=== PATIENT | female | born 2000 | race African-American/Black ===

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

== ENCOUNTER 2018-09-13 06:09 | Inpatient (IN) ==
[2018-09-13] MEDS ORDERED: MEPERIDINE 50 MG/1 ML VIAL IV PRN (06:25)
[2018-09-13] MEDS ORDERED: ONDANSETRON 4 MG/2 ML VIAL IV PRN (06:25)
[2018-09-13] MEDS ORDERED: BUTORPHANOL 2 MG/ML VIAL IV PRN (06:25)
[2018-09-13] MEDS ORDERED: OXYTOCIN/LR 20 UNIT/1,000 ML BAG IV SCH (06:30)
[2018-09-13] MEDS ORDERED: INFLUENZA VIRUS VACCINE 0.5 ML SYRINGE IM ONE (06:34)
[2018-09-13 06:47] LABS: Basophils % 0.1 % (0.0-0.8); Eosinophils # 0.2 10*3/uL (0.0-0.87); Eosinophils % 3.3 % (0.00-10.9); Hematocrit 33.1 VOL% (35.7-47.0); Hemoglobin 10.3 GM/DL (12.0-16.0); Immature Granulocytes % 0.6 %; Immature Granulocytes Absolute 0.04 #; Lymphocytes # 1.6 10*3/uL (1.4-4.0); Lymphocytes % 22.2 % (21.3-54.2); Mean Corpuscular HGB Conc 31.1 GM/DL (32-36); Mean Corpuscular Hemoglobin 31 PG (27-34); Mean Corpuscular Volume 98.2 FL (87-102); Mean Platelet Volume 9.8 FL (9.6-12.0); Monocytes # 0.6 10*3/uL (0.11-0.8); Monocytes % 7.7 % (1.7-12.7); Neutrophils # 4.8 10*3/uL (1.4-7.4); Neutrophils % 66.1 % (38.7-73.9); Platelet Count 234 T/CUMM (130-400); Red Blood Count 3.37 MC/CUMM (3.8-5.5); Red Cell Distribution Width 12.7 % (9.3-17.3); White Blood Count 7.3 T/CUMM (4-12)
[2018-09-13 06:50] LABS: Apearance,Urine CLOUDY (Clear); Bilirubin,Urine Negative (Negative); Blood, Urine Negative (Negative); Glucose,Urine (UA) Negative (Negative); Ketones,Urine 80 mg/dL (Negative); Mucus,Urine Many /LPF (Occasional); Nitrite,Urine Negative (Negative); Protein,Urine 100 MG/DL; RBC,Urine 5 /HPF (0-4); Squamous Epithelial Cell,Urine Moderate /HPF (0-10); Urine Color Amber (Yellow); Urine Specific Gravity 1.021 (1.001-1.035); WBC,Urine 42 /HPF (0-6)
[2018-09-13 07:03] LABS: Albumin 2.9 G/DL (3.4-5.0); Bilirubin,Total 0.5 MG/DL (0.2-1.0); Calcium 9.2 MG/DL (8.5-10.1); Osmolality,Calculated 275.4 MOS/KG (273-304); Potassium 4.6 MMOL/L (3.5-5.1)
[2018-09-13] MEDS ORDERED: AMPICILLIN INJ 2,000 MG in SODIUM CHLORIDE 0.9% 100 ML IV SCH (07:30)
[2018-09-13] MEDS: LACTATED RINGERS 1,000 ML IV SCH ×2 (07:48→15:16)
[2018-09-13] MEDS ORDERED: AMPICILLIN INJ 1,000 MG in SODIUM CHLORIDE 0.9% 100 ML IV SCH (12:00)
[2018-09-13] MEDS ORDERED: BUTORPHANOL 2 MG/ML VIAL IV ONE (12:56)
[2018-09-13] MEDS ORDERED: diphenhydrAMINE 50 MG/1 ML VIAL ONE (14:21)
[2018-09-13] MEDS ORDERED: diphenhydrAMINE 50 MG/1 ML VIAL IM ONE (14:23)
[2018-09-13] MEDS ORDERED: LIDOCAINE 1% 50 ML VIAL ONE (16:08)
[2018-09-13 17:19] LABS: Cord Arterial Blood HCO3 19.9 MMOL/L
[2018-09-13 17:21] LABS: Cord Venous Blood HCO3 19.2 MMOL/L; Cord Venous Blood PCO2 34.9 MMHG
[2018-09-13] MEDS ORDERED: DIPH/TET/ACEL PERT BOOSTER VACCINE 0.5 ML VIAL IM ONE (18:37)
[2018-09-13] MEDS ORDERED: MEASLES/MUMPS/RUBELLA VACCINE 0.5 ML VIAL SUBCUT ONE (18:37)
[2018-09-13] MEDS ORDERED: HYDROCORTISONE 2.5% RECTAL CREAM 30 GM TUBE TOP PRN (18:37)
[2018-09-13] MEDS ORDERED: WITCH HAZEL PADS 100/JAR TOP PRN (18:37)
[2018-09-13] MEDS ORDERED: ACETAMINOPHEN 325 MG TABLET PO PRN (18:37)
[2018-09-13] MEDS ORDERED: LANOLIN 50% CREAM 0.3 OZ TUBE TOP PRN (18:37)
[2018-09-13] MEDS ORDERED: BISACODYL 10 MG SUPP RECTAL PRN (18:37)
[2018-09-13] MEDS ORDERED: RHO(D) IMMUNE GLOBULIN 300 MCG SYRINGE IM ONE (18:37)
[2018-09-13] MEDS ORDERED: ACETAMINOPHEN/CODEINE 300-30 MG TABLET PO PRN (18:37)
[2018-09-13] MEDS ORDERED: BENZOCAINE 20%/MENTHOL 0.5% SPRAY 56 GM CAN TOP PRN (18:37)
[2018-09-13] MEDS ORDERED: oxyCODONE/ACETAMINOPHEN 5-325 MG TABLET PO PRN ×2 (18:37)
[2018-09-13] MEDS ORDERED: OXYTOCIN/LR 20 UNIT/1,000 ML BAG IV ONE ×2 (18:51→19:00)
[2018-09-13] MEDS: IBUPROFEN 800 MG TABLET PO PRN (19:34)
[2018-09-13] MEDS: DOCUSATE SODIUM 100 MG CAPSULE PO SCH (22:52)
[2018-09-14] MEDS: IBUPROFEN 800 MG TABLET PO PRN ×2 (04:00→20:51)
[2018-09-14] MEDS: DOCUSATE SODIUM 100 MG CAPSULE PO SCH ×2 (10:28→20:51)
[2018-09-14 13:05] LABS: Basophils % 0.2 % (0.0-0.8); Eosinophils # 0.2 10*3/uL (0.0-0.87); Hemoglobin 9.1 GM/DL (12.0-16.0); Immature Granulocytes % 0.9 %; Lymphocytes # 1.9 10*3/uL (1.4-4.0); Lymphocytes % 17.6 % (21.3-54.2); Mean Corpuscular HGB Conc 32.5 GM/DL (32-36); Mean Corpuscular Hemoglobin 31 PG (27-34); Mean Corpuscular Volume 94.6 FL (87-102); Mean Platelet Volume 10.1 FL (9.6-12.0); Monocytes # 0.7 10*3/uL (0.11-0.8); Monocytes % 6.6 % (1.7-12.7); Neutrophils # 7.7 10*3/uL (1.4-7.4); Neutrophils % 72.7 % (38.7-73.9); Platelet Count 210 T/CUMM (130-400); Red Blood Count 2.96 MC/CUMM (3.8-5.5); Red Cell Distribution Width 12.7 % (9.3-17.3); White Blood Count 10.6 T/CUMM (4-12)
[2018-09-15 07:30] VITALS: BP 89/48
[2018-09-15] MEDS: DOCUSATE SODIUM 100 MG CAPSULE PO SCH (10:17)
[2018-09-15] MEDS ORDERED: INFLUENZA VIRUS VACCINE 0.5 ML SYRINGE IM ONE (12:06)
== END 2018-09-15 14:10 | disposition home or self-care (01) | DRG 560 ==
LOC: N.LDOUT 06:09 → N.LD 06:12 → N.OB 09-14 11:20
PROVIDERS: ADMIT Obstetrics & Gynecology; ATTEND Obstetrics & Gynecology

== ENCOUNTER 2021-12-18 02:49 | Inpatient (IN) ==
[2021-12-18] MEDS ORDERED: BUTORPHANOL 1 MG/ML VIAL IV PRN (03:08)
[2021-12-18] MEDS ORDERED: BUTORPHANOL 2 MG/ML VIAL IV PRN (03:08)
[2021-12-18] MEDS ORDERED: ONDANSETRON 4 MG/2 ML VIAL IV PRN (03:08)
[2021-12-18] MEDS ORDERED: OXYTOCIN/LR 30 UNIT/1,000 ML BAG IV PRN (03:12)
[2021-12-18] MEDS: LACTATED RINGERS 1,000 ML IV SCH ×2 (03:20→12:26)
[2021-12-18] MEDS ORDERED: OXYTOCIN/LR 20 UNIT/1,000 ML BAG IV SCH (03:30)
[2021-12-18 03:40] LABS: Basophils % 0.1 % (0.0-0.8); Eosinophils # 0.4 10*3/uL (0.0-0.87); Eosinophils % 5.2 % (0.00-10.9); Hematocrit 30.5 VOL% (35.7-47.0); Hemoglobin 9.8 GM/DL (12.0-16.0); Immature Granulocytes % 0.4 %; Immature Granulocytes Absolute 0.03 #; Mean Corpuscular HGB Conc 32.1 GM/DL (32-36); Mean Platelet Volume 10.2 FL (9.6-12.0); Monocytes % 6.4 % (1.7-12.7); Neutrophils % 60.9 % (38.7-73.9); Platelet Count 198 T/CUMM (130-400); Red Blood Count 3.21 MC/CUMM (3.8-5.5); Red Cell Distribution Width 12.8 % (9.3-17.3); White Blood Count 7.3 T/CUMM (4-12)
[2021-12-18 03:57] LABS: Alanine Aminotransferase < 9 U/L (13-56); Albumin 2.3 G/DL (3.4-5.0); Alkaline Phosphatase 272 U/L (45-117); Aspartate Amino Transferase 11 U/L (0-37); Bilirubin,Total < 0.39 MG/DL (0.20-1.00); Blood Urea Nitrogen 3 MG/DL (7-18); Calcium 8.3 MG/DL (8.5-10.1); Carbon Dioxide 21 MMOL/L (21-32); Estimated Glom Filtration Rate 162 ML/MIN; Glucose 175 MG/DL (74-106); Osmolality,Calculated 275.7 MOS/KG (273-304); Potassium 3.7 MMOL/L (3.5-5.1); Sodium 138 MMOL/L (136-145); Total Protein 6.1 G/DL (6.4-8.2)
[2021-12-18 06:11] LABS: Bilirubin,Urine Negative (Negative); Blood, Urine Negative (Negative); Glucose,Urine (UA) 50 mg/dL (Negative); Ketones,Urine 5 mg/dL (Negative); Mucus,Urine Many /LPF (Occasional); Nitrite,Urine Negative (Negative); Protein,Urine 30 MG/DL; RBC,Urine 1 /HPF (0-4); Squamous Epithelial Cell,Urine Occasional /HPF (0-10); Urine Appearance CLEAR (Clear); Urine Color Yellow (Yellow)
[2021-12-18] MEDS: MEPERIDINE 50 MG/1 ML VIAL IV PRN ×2 (09:55→12:20)
[2021-12-18] MEDS ORDERED: miSOPROStoL 200 MCG TABLET ONE (12:01)
[2021-12-18] MEDS ORDERED: METHYLERGONOVINE 0.2 MG/1 ML AMP ONE (12:02)
[2021-12-18] MEDS ORDERED: CARBOPROST TROMETHAMINE 250 MCG/ML AMP IM ONE (12:02)
[2021-12-18] MEDS ORDERED: LIDOCAINE 1% 50 ML VIAL ONE (12:07)
[2021-12-18 13:33] LABS: Cord Arterial Blood HCO3 24.2 MMOL/L
[2021-12-18 13:36] LABS: Cord Venous Blood HCO3 21.4 MMOL/L; Cord Venous Blood PCO2 44.7 MMHG
[2021-12-18] MEDS ORDERED: RHO(D) IMMUNE GLOBULIN 300 MCG SYRINGE IM ONE (14:44)
[2021-12-18] MEDS ORDERED: WITCH HAZEL PADS 100/JAR TOP PRN (14:44)
[2021-12-18] MEDS ORDERED: OXYTOCIN/LR 20 UNIT/1,000 ML BAG IV ONE (14:44)
[2021-12-18] MEDS ORDERED: ACETAMINOPHEN 325 MG TABLET PO PRN (14:44)
[2021-12-18] MEDS ORDERED: LANOLIN 50% CREAM 0.3 OZ TUBE TOP PRN (14:44)
[2021-12-18] MEDS ORDERED: DIPH/TET/ACEL PERT BOOSTER VACCINE 0.5 ML VIAL IM ONE (14:44)
[2021-12-18] MEDS ORDERED: IBUPROFEN 800 MG TABLET PO PRN (14:44)
[2021-12-18] MEDS ORDERED: BENZOCAINE 20%/MENTHOL 0.5% SPRAY 56 GM CAN TOP PRN (14:44)
[2021-12-18] MEDS ORDERED: oxyCODONE/ACETAMINOPHEN 5-325 MG TABLET PO PRN ×2 (14:44)
[2021-12-18] MEDS ORDERED: MEASLES/MUMPS/RUBELLA VACCINE 0.5 ML VIAL SUBCUT ONE (14:44)
[2021-12-18] MEDS ORDERED: BISACODYL 10 MG SUPP RECTAL PRN (14:44)
[2021-12-18] MEDS ORDERED: HYDROCORTISONE 2.5% RECTAL CREAM 30 GM TUBE TOP PRN (14:44)
[2021-12-18] MEDS: DOCUSATE SODIUM 100 MG CAPSULE PO SCH (21:01)
[2021-12-19 04:42] LABS: Basophils % 0.2 % (0.0-0.8); Eosinophils # 0.3 10*3/uL (0.0-0.87); Eosinophils % 3.6 % (0.00-10.9); Hematocrit 27.2 VOL% (35.7-47.0); Hemoglobin 8.9 GM/DL (12.0-16.0); Immature Granulocytes % 0.6 %; Immature Granulocytes Absolute 0.06 #; Lymphocytes # 2.6 10*3/uL (1.4-4.0); Lymphocytes % 28.2 % (21.3-54.2); Mean Corpuscular HGB Conc 32.7 GM/DL (32-36); Mean Corpuscular Volume 94.4 FL (87-102); Mean Platelet Volume 10.7 FL (9.6-12.0); Monocytes % 6.3 % (1.7-12.7); Neutrophils % 61.1 % (38.7-73.9); Platelet Count 162 T/CUMM (130-400); Red Blood Count 2.88 MC/CUMM (3.8-5.5); Red Cell Distribution Width 12.5 % (9.3-17.3); White Blood Count 9.3 T/CUMM (4-12)
[2021-12-19] MEDS: DOCUSATE SODIUM 100 MG CAPSULE PO SCH ×2 (08:34→20:34)
[2021-12-19] MEDS: FERROUS SULFATE 325 MG TABLET PO SCH ×2 (10:50→20:34)
[2021-12-20 08:00] VITALS: BP 106/70
[2021-12-20] MEDS: DOCUSATE SODIUM 100 MG CAPSULE PO SCH (09:36)
[2021-12-20] MEDS: FERROUS SULFATE 325 MG TABLET PO SCH (09:36)
== END 2021-12-20 12:25 | disposition home or self-care (01) | DRG 560 ==
LOC: N.LD 02:49 → N.OB 12-19 10:40
PROVIDERS: ADMIT Obstetrics & Gynecology; ATTEND Obstetrics & Gynecology